=== PATIENT | female | born 1975 | race Caucasian/White ===

== ENCOUNTER 2019-11-13 16:30 | Emergency (ER) | payer OTHER ==
[~2019-11-13] VITALS: Ht 160 cm; Wt 84.8 kg
[~2019-11-13 16:30] MED LIST: XANAX0.5 MG PO
[2019-11-13] MEDS ORDERED: PROTONIX40 MG PO (19:09)
== END 2019-11-13 19:25 | disposition home or self-care (01) ==
LOC: ED 16:30
DX: R10.12 Left upper quadrant pain (principal); Z87.891 Personal history of nicotine dependence
CPT/HCPCS: 71046; 80053; 81001; 83690; 85025; 96374; 99284-25; J1885